=== PATIENT | male | born 1950 | race Caucasian/White ===

== ENCOUNTER 2018-03-08 05:52 | Day surgery (SDC) | payer MEDICARE, BC ==
[2018-03-08] MEDS ORDERED: DIPRIVAN 200 MG/20 ML IV ONE (05:53)
[2018-03-08] MEDS ORDERED: Lactated Ringers 1,000 ML IV SCH (06:30)
[2018-03-08 10:04] VITALS: O2SAT 96
[2018-03-08 10:07] VITALS: PULSE 64
--- NOTE | 2018-03-08 10:22 | OP ---
SURGERY DATE/TIME: 03/08/2018 0759 PREOPERATIVE DIAGNOSIS: History of colon polyps. POSTOPERATIVE DIAGNOSIS: Polyps in the cecum. PROCEDURE: Colonoscopy with biopsy. SURGEON: Dr. Trujillo. ANESTHESIA: MAC. Medications given by anesthesia department. HISTORY: The patient is a 68 year-old white male patient who presents with history of multiple colon polyps. He has had colonoscopy done several times. It has been several years since his previous examination. He is felt the need to have endoscopic evaluation and reappraised of the risks of the procedure including the risk of perforation, phlebitis, untoward reaction to medication, bleeding and missed lesions. The patient verbalized his understanding and desired to have the procedure performed. DESCRIPTION OF PROCEDURE: The patient was given the medications by the anesthesia department. He had continuous pulse oximetry, ECG monitoring, intermittent blood pressure monitoring and tidal CO2 monitoring during the examination. He was placed in the left lateral decubitus position. A digital rectal examination was performed and revealed normal anal sphincter tone, no masses and normal prostate. The flexible Olympus pediatric colonoscope was used to intubate the rectum. A view of the colon was developed sequentially to the cecum where a polyp was noted just beyond the ileocecal valve this is destroyed using multiple hot passes of cold biopsy forceps. Minimal bleeding was noted in this portion of the procedure. The scope was withdrawn from the patient with careful inspection no other mucosa lesions were found. The scope was removed from the patient who tolerated the procedure well and was sent back to OP recovery in good condition. The prep was noted to be good.
[2018-03-08 10:41] VITALS: BP 141/87
== END 2018-03-08 09:50 | disposition home or self-care (01) ==
LOC: SDC 05:52
PROVIDERS: ATTEND Family Medicine
DX: K63.5 Polyp of colon (principal); Z86.010 Personal history of colon polyps
CPT/HCPCS: 94250; J2704

== ENCOUNTER 2023-06-08 06:16 | Day surgery (SDC) | payer BC, MEDICARE, OTHER ==
[2023-06-08] MEDS ORDERED: Lactated Ringers 1,000 ML IV SCH (07:00)
[2023-06-08] MEDS ORDERED: Versed 2 MG/2 ML Injection ONE (07:51)
[2023-06-08] MEDS ORDERED: Amidate 20 MG/10 ML IV ONE ×2 (07:51→08:04)
[2023-06-08 08:18] VITALS: RESP 18; TEMP 96.8
[2023-06-08 08:32] VITALS: BP 128/76; PULSE 79; O2SAT 96
--- NOTE | 2023-06-08 09:02 | OP ---
SURGERY DATE/TIME: 06/08/2023 0756 PREOPERATIVE DIAGNOSIS: Blood in the stool, previous history of colon polyps. POSTOPERATIVE DIAGNOSIS: Normal colon. PROCEDURE: Colonoscopy. SURGEON: Dr. Trujillo. ANESTHESIA: Medications given by anesthesia department. HISTORY: The patient is a 73-year-old white male who had an exam recently that showed positive for blood in the stool at the [facility] [place]. The patient is felt to need to have endoscopic evaluation. He had also previously had colon polyps. The patient was appraised of the risks of the procedure including the risk of perforation, phlebitis, untoward reaction to medication, bleeding and missed lesions. The patient verbalized his understanding and desired to have the procedure performed. DESCRIPTION OF PROCEDURE: The patient was given the medications by the anesthesia department. He had continuous pulse oximetry, ECG monitoring and intermittent blood pressure monitoring during the examination. He was placed in the left lateral decubitus position. A digital rectal examination was performed and revealed external hemorrhoids, normal anal sphincter tone, no masses and normal prostate. The flexible Olympus pediatric colonoscope was used to intubate the rectum. A view of the colon was developed sequentially to the cecum. Upon insertion and withdrawal, including a retroflex view in the rectum, no mucosal lesions were encountered. The scope was removed from the patient who tolerated the procedure well and was sent back to OP recovery in good condition. The prep was noted to be good.
== END 2023-06-08 08:38 | disposition home or self-care (01) ==
LOC: SDC 06:16
PROVIDERS: ATTEND Family Medicine
DX: Z09 Encounter for follow-up examination after completed treatment for conditions other than malignant neoplasm (principal); Z86.010 Personal history of colon polyps; K92.1 Melena; K64.4 Residual hemorrhoidal skin tags
CPT/HCPCS: J2250